=== PATIENT | female | born 1940 | race Caucasian/White ===

== ENCOUNTER 2018-10-14 20:09 | Emergency (ER) | payer MEDICARE ==
[~2018-10-14] VITALS: Ht 170.2 cm; Wt 54.4 kg
[~2018-10-14 20:09] MED LIST: CITA20 PO; CODBUTACEC PO; HYDACE5325 PO; OMEP20ER PO; ONDA4 PO; ROSU10TA PO; SUMA25 PO
[2018-10-14] MEDS ORDERED: Norco 5-325 Ta1 EACH PO (22:03)
== END 2018-10-14 22:09 | disposition home or self-care (01) ==
LOC: ER 20:09
DX: M25.562 Pain in left knee (principal); Z91.040 Latex allergy status; Z79.899 Other long term (current) drug therapy; Z79.891 Long term (current) use of opiate analgesic; G43.909 Migraine, unspecified, not intractable, without status migrainosus; X50.9XXA Other and unspecified overexertion or strenuous movements or postures, initial encounter
CPT/HCPCS: 29505; 73564; 99283-25

== ENCOUNTER → 2022-06-16 | Outpatient (CLI) | payer MEDICARE ==
[~2022-06-16] MED LIST changes: +Norco 5-325 Ta1 EACH PO
== END | disposition home or self-care (01) ==
LOC: LAB 17:29 → LAB SHORT 17:29
DX: R30.0 Dysuria (principal)
CPT/HCPCS: 87086

== ENCOUNTER → 2022-06-29 | Outpatient (CLI) | payer MEDICARE | END | disposition home or self-care (01) | LOC: LAB SHORT 13:45 → LAB 13:45 | DX: R30.0 Dysuria (principal) | CPT/HCPCS: 87086 ==

== ENCOUNTER → 2023-03-13 | Outpatient (CLI) | payer MEDICARE ==
[2023-03-16 10:23] LABS: C DIFFICILE DNA POSITIVE (Negative)
== END ==
LOC: LAB SHORT 14:29 → LAB 14:29
PROVIDERS: Physician Assistant Medical
DX: K52.831 Collagenous colitis (principal); R19.7 Diarrhea, unspecified
CPT/HCPCS: 83993; 87324; 87493

== ENCOUNTER 2023-05-08 09:08 | Emergency (ER) | payer MEDICARE ==
[~2023-05-08] VITALS: Ht 170.2 cm; Wt 47.6 kg
[2023-05-08 09:25] VITALS: BP 128/63
[2023-05-08] MEDS ORDERED: ONDA4ODT MM (10:34)
== END 2023-05-08 10:51 | disposition home or self-care (01) ==
LOC: ER 09:08
DX: U07.1 COVID-19 (principal); F03.90 Unspecified dementia, unspecified severity, without behavioral disturbance, psychotic disturbance, mood disturbance, and anxiety; Z31.0 Encounter for reversal of previous sterilization; Z91.040 Latex allergy status; Z87.891 Personal history of nicotine dependence
CPT/HCPCS: 99284